=== PATIENT | male | born 1955 | race Caucasian/White ===

== ENCOUNTER 2017-12-31 09:52 | Emergency (ER) | payer MEDICAID ==
[~2017-12-31] VITALS: Ht 180.3 cm; Wt 70.0 kg
[~2017-12-31 09:52] MED LIST: ATOR20TA42 PO; CEPH500C3 PO; CILO100T PO; CLOP75 PO; DOXY100T PO; GABA800T PO; HYDR-3533 PO; LISI5 PO; PERC10TA27 PO; PERC5TAB12 PO; PRIL20CA PO; TIZA4 PO
[2017-12-31] MEDS ORDERED: IOHEXOL 350 MG/ML 10 ML VIAL (for RAD DIAG) IVCONTRAST ONE (09:53)
[2017-12-31 09:57] VITALS: BP 103/61; PULSE 82; RESP 16; TEMP 98.1; O2SAT 99
--- NOTE | 2017-12-31 10:19 | PD ---
HPI Chief Complaint: Pain: Acute or Chronic Time Seen by Provider: 10:02 Travel History International Travel<30 days: No Contact w/Intl Traveler<30days: No Traveled to known affect area: No History of Present Illness HPI 62 YO M with PMH of PVD, s/p bypass by Dr. Silva presents to the ED for evaluation of pain and numbness of the BLE. Onset after walking ~20-30 feet. Patient states these symptoms are exactly like previous symptoms, only now are occurring with more frequency. He states that they have been occurring more frequently for "about 3 weeks." He states that occasionally the legs "lock up." He states that he has occasionally fallen. He denies acute injury, associated back pain, incontinence, saddle anesthesia. He has been taking tramadol at home , last dose yesterday. He states "that doesn't work at all." He states that he feels like "the surgery broke." PFSH Past Medical History Hx Anticoagulant Therapy: Yes Arthritis: Yes (OA) Cancer: No Cardiovascular Problems: Yes High Cholesterol: Yes (HX OF ELEVATED) Chemotherapy: No Chest Pain: Yes Cerebrovascular Accident: Yes Coronary Artery Disease: Yes (history of OK with stents, stents to right illiac artery) Diabetes: No Diminished Hearing: No Endocrine: No Hypertension: Yes (ON MEDICATION) Implanted Vascular Access Dvce: Yes Kidney Stones: Yes (HX 44 YEARS AGO) Musculoskeletal: Yes (chronic pain from multiple previous injuries) Neurologic: No Psychiatric: No Respiratory: No Past Surgical History Body Medical Devices: CARDIAC STENT / R LEG STENT 08 Cardiac Surgery: Yes (STENT IN HEART 2007 / STENT IN R LEG) Coronary Stent: Yes (x 2) Hysterectomy: No Social History Alcohol Use: Yes Tobacco Use: Yes (1 ppd) Substance Use: No Allergies-Medications (Allergen,Severity, Reaction): Coded Allergies: tramadol (Unverified Allergy, Severe, Hallucinations, 02/21/17) Reported Meds & Prescriptions Reported Meds & Active Scripts Active Suring (Hydrocodone-Acetaminophen) 5 Mg-325 Mg Tab 1 Tab PO Q6H PRN Lortab 5 mg/325 mg (Hydrocodone/Acetaminophen 5 mg/325 mg) 1 Tab 1 Tab PO Q6H PRN Doxycycline Hyclate 100 mg (Doxycycline Hyclate) 100 Mg Tab 100 Mg PO BID 7 Days Keflex (Cephalexin Monohydrate) 500 Mg Cap 500 Mg PO Q6 7 Days Percocet 10-325 mg (Oxycodone-Acetaminophen 10-325 mg) 1 Tab 1 Tab PO Q6H PRN Prinivil 5 mg (Lisinopril) 5 Mg Tab 5 Mg PO DAILY Plavix (Clopidogrel Bisulfate) 75 Mg Tab 75 Mg PO DAILY Lipitor 20 Mg Tab (Atorvastatin) 20 Mg Tab 20 Mg PO HS Reported Zanaflex 4 mg (Tizanidine HCl) 4 Mg Tab 4 Mg PO DAILY Gabapentin 800 Mg Tab 800 Mg PO TID Prilosec 20 mg (Omeprazole) 20 Mg Capcr 20 Mg PO DAILY Cilostazol 100 Mg Tab 100 Mg PO DAILY Percocet 5-325 mg (Oxycodone/Acetaminophen) 1 Tab 1 Tab PO Q6H PRN Review of Systems Except as stated in HPI: all other systems reviewed are Neg Physical Exam Narrative GENERAL: Well-nourished, well-developed thin white male in NAD. SKIN: Focused skin assessment warm/dry. HEAD: Normocephalic. EYES: No scleral icterus. No injection or drainage. NECK: Supple, trachea midline. No JVD or lymphadenopathy. CARDIOVASCULAR: Regular rate and rhythm without murmurs, gallops, or rubs. RESPIRATORY: Breath sounds equal bilaterally. No accessory muscle use. GASTROINTESTINAL: Abdomen soft, non-tender, nondistended. MUSCULOSKELETAL: No cyanosis, or edema. BILATERAL LOWER EXTREMITY EXAM: palpable pulses in bilateral groins. Palpable pulses bilateral DPs. Feet are warm and well perfused. 5/5 strength of dorsiflexion, plantar flexion, knee and hip flexion bilaterally. Neurovascularly intact distally bilaterally. BACK: Nontender without obvious deformity. No midline tenderness to palpation. No TTP of the sciatic notch bilaterally. No CVA tenderness. Data Data Last Documented VS Vital Signs Date Time Temp Pulse Resp B/P (MAP) Pulse Ox O2 Delivery O2 Flow Rate FiO2 12/31/17 16:54 12/31/17 09:57 98.1 82 16 99 Orders Orders Cta Runoff W Iv Contrast W 3d (12/31/17 ) ^ Insert Iv (12/31/17 10:21) Complete Blood Count With Diff (12/31/17 10:21) Basic Metabolic Panel (Bmp) (12/31/17 10:21) Coag Profile (12/31/17 10:21) Iohexol 350 Inj (Omnipaque 350 Inj) (12/31/17 09:53) Ed Discharge Order (12/31/17 16:47) Labs Laboratory Tests Test 12/31/17 10:35 White Blood Count 5.0 TH/MM3 Red Blood Count 4.60 MIL/MM3 Hemoglobin 15.2 GM/DL Hematocrit 45.4 % Mean Corpuscular Volume 98.6 FL Mean Corpuscular Hemoglobin 33.1 PG Mean Corpuscular Hemoglobin Concent 33.5 % Red Cell Distribution Width 12.7 % Platelet Count 137 TH/MM3 Mean Platelet Volume 8.3 FL Neutrophils (%) (Auto) 58.7 % Lymphocytes (%) (Auto) 20.7 % Monocytes (%) (Auto) 17.4 % Eosinophils (%) (Auto) 2.2 % Basophils (%) (Auto) 1.0 % Neutrophils # (Auto) 2.9 TH/MM3 Lymphocytes # (Auto) 1.0 TH/MM3 Monocytes # (Auto) 0.9 TH/MM3 Eosinophils # (Auto) 0.1 TH/MM3 Basophils # (Auto) 0.1 TH/MM3 CBC Comment DIFF FINAL Differential Comment Prothrombin Time 10.3 SEC Prothromb Time International Ratio 1.0 RATIO Activated Partial Thromboplast Time 26.5 SEC Blood Urea Nitrogen 13 MG/DL Creatinine 1.04 MG/DL Random Glucose 85 MG/DL Calcium Level 8.4 MG/DL Sodium Level 139 MEQ/L Potassium Level 4.3 MEQ/L Chloride Level 105 MEQ/L Carbon Dioxide Level 25.0 MEQ/L Anion Gap 9 MEQ/L Estimat Glomerular Filtration Rate 73 ML/MIN MDM Medical Decision Making Medical Screen Exam Complete: Yes Emergency Medical Condition: Yes Differential Diagnosis PVD versus claudication versus chronic pain versus radiculopathy versus other Narrative Course 62 YO M with PMH of PVD, s/p bypass by Dr. Silva presents to the ED for evaluation of worsening claudication symptoms. Vitals reviewed. On physical exam the patient has palpable pulses in both groins and both DPs. Feet are warm and well perfused. Homans sign is negative bilaterally. No midline tenderness of the back. No loss of strength in the lower extremities. No concerning lab abnormalities. CTA with runoff essentially unchanged from prior studies of 01/19/2016. I discussed the patient and CTA with Dr. Junior. He recommends outpatient follow-up. I discussed the adults of the workup with the patient. He is provided a brief course of pain medications, instructed to follow-up with Dr. Junior. He indicated understanding of the instructions. He is stable and discharged home. Diagnosis Primary Impression: PVD (peripheral vascular disease) with claudication Referrals: Timothy William MD Additional Instructions: Rest, hydrate. Call Dr. Munoz office tomorrow for follow-up appointment. Return to the ED for worsening symptoms or any urgent or emergent medical condition. Med/Other Pt SpecificInfo: Prescription(s) given Scripts Hydrocodone-Acetaminophen (Suring) 5 Mg-325 Mg Tab 1 TAB PO Q6H Y for PAIN, #10 TAB 0 Refills Prov: Opal De Los Santos DO 12/31/17 Disposition: 01 DISCHARGE HOME Condition: Stable Leslye Thao Dec 31, 2017 10:19
[2017-12-31 10:46] LABS: AUTOMATED NEUTROPHIL # 2.9 TH/MM3 (1.8-7.7); BASOPHIL # 0.1 TH/MM3 (0-0.2); EOSINOPHIL # 0.1 TH/MM3 (0-0.4); EOSINOPHIL % 2.2 % (0.0-4.0); HEMATOCRIT 45.4 % (39.0-51.0); HEMOGLOBIN 15.2 GM/DL (13.0-17.0); LYMPH % 20.7 % (9.0-44.0); MEAN CELL VOLUME 98.6 FL (80.0-100.0); MEAN CORPUSCULAR HEMOGLOBIN 33.1 PG (27.0-34.0); MEAN CORPUSCULAR HGB CONC 33.5 % (32.0-36.0); MEAN PLATELET VOLUME 8.3 FL (7.0-11.0); MONO % 17.4 % (0.0-8.0); MONOCYTE # 0.9 TH/MM3 (0-0.9); NEUT % 58.7 % (16.0-70.0); PLATELET COUNT 137 TH/MM3 (150-450); RED CELL DISTRIBUTION WIDTH 12.7 % (11.6-17.2)
[2017-12-31 11:01] LABS: PROTHROMBIN TIME - PATIENT 10.3 SEC (9.8-11.6)
[2017-12-31 11:05] LABS: CALCIUM 8.4 MG/DL (8.5-10.1); CREATININE 1.04 MG/DL (0.60-1.30)
[2017-12-31 14:54] VITALS: BP 100/58
--- NOTE | 2017-12-31 16:22 | RADRPT ---
EXAM DATE: 12/31/2017 1:25 PM EDT AGE/SEX: 62 years / Male INDICATIONS: Bilateral leg pain for two weeks. History of perpipheral vascular disease and grafting. CLINICAL DATA: This is the patient's initial encounter. Patient reports that signs and symptoms have been present for 1 day and indicates a pain score of 4/10. MEDICAL/SURGICAL HISTORY: Cardiovascular disease. Hypertension. None. RADIATION DOSE: 8.32 CTDI (mGy) COMPARISON: [facility], CTA RUNOFF W 3D RECON, 01/19/2016. . TECHNIQUE: Volumetric scanning was performed using a multi-row detector CT scanner during bolus infu kevin of 100 ml Omnipaque 350 (iohexol) nonionic water-soluble contrast as a single exam dose. The data was post processed with a variety of visualization algorithms including full volume maximum inte nsity projection, multi-planar sliding thin slab reformation, curved planar reformation, and surface rendering techniques. Using automated exposure control and adjustment of the mA and/or kV according to patient size, radiation dose was kept as low as reasonably achievable to obtain optimal diagnostic quality images. FINDINGS: Angiographic Findings: Abdominal Aorta: Moderate vascular calcifications of the infrarenal aorta without aneurysm. Mild dis lizz aortic stenosis. Renal Arteries: Single bilateral renal arteries. Mild stenosis of the proximal left renal artery seco ndary to calcified plaque. Mesenteric Arteries: Celiac, SMA, and SAI are patent. Right side: Inflow: Right common and external iliac artery stents extending to the junction of the common femoral artery. Mild diffuse IntraStent stenosis of the external iliac artery stent. Mild persistent stenosi s at the distal, neck artery stent junction. Internal iliac artery is occluded at the origin with rec onstitution of distal branches. Mild stenosis of the common femoral artery at the bifurcation. Outflow: The profunda is patent. Diffusely calcified SFA with tandem [id number] stenoses throug hout the proximal to mid thigh. The popliteal artery is patent. Runoff: Diffusely calcified proximal anterior tibial artery and distal tibioperoneal trunk. Otherwise , three-vessel runoff to the foot. Left side: Inflow: Common iliac artery is occluded just beyond the origin. There is a patent right to left femor al-femoral bypass graft. Mild stenosis of the distal common femoral artery at the bifurcation. Outflow: The profunda is patent. Diffusely calcified SFA with mild to moderate tandem stenoses in the proximal to mid thigh. The popliteal artery is patent. Runoff: Limited three-vessel runoff with diffusely calcified proximal anterior tibial, tibioperoneal trunk and very proximal posterior tibial arteries. General Findings: Limited evaluation due to arterial phase technique. LIVER: Visualized portions of the liver are grossly unremarkable. SPLEEN: Unremarkable.. PANCREAS: Unremarkable without mass or calcification. KIDNEYS: Kidneys demonstrate symmetrical enhancement and are symmetrical in size without evidence fo r radiopaque renal calculi or hydronephrosis. ADRENAL GLANDS: Unremarkable. BOWEL/MESENTERY: The bowel loops are grossly unremarkable. The cecum and sigmoid colon have a megan l configuration. ABDOMINAL WALL: Intact. RETROPERITONEUM: No evidence of adenopathy in the retrocrural, para-aortic, or deep pelvic regions. BLADDER: Contours are smooth. REPRODUCTIVE: No abnormal masses or calcifications seen. INGUINAL: The inguinal region is unremarkable without evidence of adenopathy. BONY STRUCTURES: Degenerative spondylosis of the lower lumbar spine. CONCLUSION: 1. Stable examination in comparison to 01/19/2016 exam. 2. Right common and external iliac artery stents with mild diffuse external iliac artery intrastent stenosis. There is also mild persistent stenosis at the distal common iliac artery stent junction. 3. Chronically occluded left iliac arteries with patent right to left femoral to femoral bypass casey t. 4. Persistent mild to moderate bilateral SFA disease. 5. Limited three-vessel runoff bilaterally, as above. Electronically signed by: Boby Sotelo MD 12/31/2017 4:21 PM EDT
[2017-12-31] MEDS ORDERED: NORC5TAB PO (16:47)
== END 2017-12-31 17:04 | disposition home or self-care (01) ==
LOC: NEPD 09:52
DX: I73.9 Peripheral vascular disease, unspecified (principal); F17.200 Nicotine dependence, unspecified, uncomplicated; I10 Essential (primary) hypertension; E78.00 Pure hypercholesterolemia, unspecified; I25.10 Atherosclerotic heart disease of native coronary artery without angina pectoris; Z79.02 Long term (current) use of antithrombotics/antiplatelets
CPT/HCPCS: 75635; 80048; 85025; 85610; 85730; 99285; Q9967